=== PATIENT | male | born 1965 | race Hispanic/Latino ===

== ENCOUNTER 2017-11-23 05:50 | Day surgery (SDC) | payer OTHER, MEDICARE ==
[~2017-11-23] VITALS: Ht 170.2 cm; Wt 140.7 kg
[~2017-11-23 05:50] MED LIST: AMLO10TA2 PO; GLIM4TAB3 PO; INVOK100TB PO; LISI40TA4 PO; METF500T6 PO; METO-408 PO; ROSU20TA38 PO; SERT25TA5 PO
[2017-11-23 06:39] VITALS: BP 144/78
[2017-11-23] MEDS ORDERED: SODIUM CHLORIDE 0.9% 1000ML 1,000 ML IV ONE (06:54)
[2017-11-23] MEDS ORDERED: PROPOFOL 10 MG/ML 20ML VIAL IV ONE ×2 (07:19→07:59)
[2017-11-23] MEDS ORDERED: PHENYLEPHRINE HCL 10 MG/ML 1ML VIAL IV ONE ×2 (07:30)
[2017-11-23 08:08] VITALS: BP 105/58
== END 2017-11-23 08:44 | disposition home or self-care (01) ==
LOC: DAH 05:50 → ENDO 05:50
PROVIDERS: ATTEND Internal Medicine Gastroenterology
DX: R19.5 Other fecal abnormalities (principal); I10 Essential (primary) hypertension; E78.5 Hyperlipidemia, unspecified; E11.9 Type 2 diabetes mellitus without complications; G43.909 Migraine, unspecified, not intractable, without status migrainosus; E66.9 Obesity, unspecified; Z96.60 Presence of unspecified orthopedic joint implant; Z83.3 Family history of diabetes mellitus; Z80.9 Family history of malignant neoplasm, unspecified; F17.210 Nicotine dependence, cigarettes, uncomplicated; Z68.44 Body mass index [BMI] 60.0-69.9, adult
CPT/HCPCS: 45378; 82948 ×2; A4606; J2370 ×2; J2704 ×2; J7030

== ENCOUNTER → 2019-05-13 | Outpatient (CLI) | payer OTHER, MEDICARE ==
[~2019-05-13] MED LIST changes: -AMLO10TA2 PO; +AMLO10TA7 PO; +METF-444 PO; -METF500T6 PO; +ROSU20TA30 PO; -ROSU20TA38 PO
== END | disposition home or self-care (01) ==
LOC: SHCH 10:00
PROVIDERS: ATTEND Internal Medicine Cardiovascular Disease
DX: I11.9 Hypertensive heart disease without heart failure (principal)
CPT/HCPCS: 93306

== ENCOUNTER → 2023-06-19 | Outpatient (CLI) | payer OTHER, MEDICARE ==
[~2023-06-19] MED LIST changes: +AMLO-258 PO; -AMLO10TA7 PO; -GLIM4TAB3 PO; +GLIM4TAB36 PO; -LISI40TA4 PO; +LISI40TA9 PO; -ROSU20TA30 PO; +ROSU20TA73 PO; +SERT-438 PO; -SERT25TA5 PO
[2023-06-19 22:16] VITALS: PULSE 85; RESP 16
[2023-06-19 22:35] VITALS: PULSE 68; RESP 16
[2023-06-19 23:01] VITALS: PULSE 62; RESP 14
[2023-06-19 23:31] VITALS: PULSE 60; RESP 16
[2023-06-20] VITALS (11 sets, daily range): PULSE 57–96; RESP 10–16
== END | disposition home or self-care (01) ==
LOC: SLP 20:28
PROVIDERS: ATTEND Family Medicine
DX: G47.33 Obstructive sleep apnea (adult) (pediatric) (principal); G47.10 Hypersomnia, unspecified
CPT/HCPCS: 95810

== ENCOUNTER → 2023-09-06 | Outpatient (CLI) | payer OTHER, MEDICARE ==
[2023-09-06] VITALS (8 sets, daily range): PULSE 40–59; RESP 7–21
[2023-09-07] VITALS (16 sets, daily range): PULSE 40–52; RESP 15–30
== END | disposition home or self-care (01) ==
LOC: SLP 19:58
PROVIDERS: ATTEND Family Medicine
DX: G47.33 Obstructive sleep apnea (adult) (pediatric) (principal)
CPT/HCPCS: 95811

== ENCOUNTER → 2025-06-11 | Outpatient (CLI) | payer MEDICARE ==
[~2025-06-11] MED LIST changes: -AMLO-258 PO; +ATOR40TA69 PO; +FAMO20TA8 PO; -GLIM4TAB36 PO; -INVOK100TB PO; +IOHEXOL-350 50ML VIAL IV ONE; -LISI40TA9 PO; -METO-408 PO; -ROSU20TA73 PO; -SERT-438 PO
--- NOTE | 2025-06-11 14:18 | HMCIMG ---
CLINICAL INDICATION: Right mid thigh fistula EXAMINATION: Fistulogram COMPARISON: None available TECHNIQUE: [employer] Services [employer]inator film of the right lower quadrant was obtained. FINDINGS: [employer] Services Coordinator film of the abdomen and pelvis demonstrating no abnormality. There is left medial gluteal fistula. Using an Angiocath contrast was injected the study demonstrate there is a fistula in the medial aspect of the left thigh which is approximately 5 cm in length a small pocket measured 2 cm which appears to be subcutaneous. It is not communicating with the pelvis IMPRESSION: 1. Superficial 5 cm length fistula with distal tip 2 cm cavity.
== END | disposition home or self-care (01) ==
LOC: RAH 09:37
PROVIDERS: ATTEND Family Medicine
DX: M25.18 Fistula, other specified site (principal); L98.419 Non-pressure chronic ulcer of buttock with unspecified severity
CPT/HCPCS: 76080; Q9967